=== PATIENT | male | born 1970 | race Caucasian/White ===

== ENCOUNTER 2020-10-21 08:46 | Outpatient (REF) | payer MEDICAID, SELFPAY | END 2020-10-21 08:47 | disposition home or self-care (01) | LOC: HO.LAB 08:46 | PROVIDERS: Visit Provider Internal Medicine | DX: Z20.828 Contact with and (suspected) exposure to other viral communicable diseases (principal) | CPT/HCPCS: C9803; U0003 ==

== ENCOUNTER 2020-12-27 13:36 | Outpatient (REF) | payer MEDICAID, SELFPAY | END 2020-12-27 13:37 | disposition home or self-care (01) | LOC: HO.LAB 13:36 | PROVIDERS: Visit Provider Internal Medicine | DX: Z20.822 Contact with and (suspected) exposure to COVID-19 (principal) | CPT/HCPCS: 36415; C9803; U0003; U0005 ==

== ENCOUNTER 2021-05-28 10:02 | Outpatient (REF) | payer MEDICAID, SELFPAY ==
--- NOTE | ~2021-05-28 | XR_ITS ---
EXAMINATION: XR HAND, LEFT CLINICAL INFORMATION: Pain COMPARISON: None TECHNIQUE: PA, lateral, and oblique views of the left hand. FINDINGS: The bones and soft tissues are normal. No fracture. Alignment is anatomic. Joint spaces are maintained. No erosions or soft tissue calcifications. XR/XR hand LT min 3V IMPRESSION: Normal left hand.
== END 2021-05-28 10:03 | disposition home or self-care (01) ==
LOC: HO.XRAY 10:02
PROVIDERS: PCP Internal Medicine Geriatric Medicine; Visit Provider Internal Medicine Geriatric Medicine
DX: M79.642 Pain in left hand (principal)
CPT/HCPCS: 73130

== ENCOUNTER 2022-01-21 14:10 | Outpatient (REF) | payer MEDICAID, SELFPAY ==
--- NOTE | ~2022-01-21 | MR_ITS ---
EXAMINATION: MR LUMBAR SPINE WITHOUT CONTRAST CLINICAL INFORMATION: Status post remote trauma. Some loss of sensation right leg. COMPARISON: None TECHNIQUE: MRI of the lumbar spine was obtained using routine sequences without contrast. FINDINGS: The lumbar vertebral bodies maintain normal heights. There is mild retrolisthesis of L2 on L3 with mild disc height loss. No bone marrow edema is seen. The distal spinal cord appears normal. The conus medullaris terminates normally at the L1 level. The extraspinal soft tissues are within normal limits. SPINAL LEVELS: L1-L2: Disc bulging with left subarticular protrusion with abutment of the traversing left L2 nerve root. No spinal canal or neural foraminal stenosis. L2-L3: Disc bulging with facet arthropathy resulting in mild spinal canal stenosis and mild narrowing of the neural foramina. L3-L4: Disc bulging with mild to moderate facet arthropathy with left subarticular stenosis. Bulging disc extends into the neural foramina resulting in mild mass effect on the exiting L3 nerve roots. L4-L5: Disc bulging with left foraminal annular fissuring and mild facet arthropathy. No spinal canal stenosis. Left foraminal protrusion abuts the exiting left L4 nerve root. Mild right neural foraminal stenosis. L5-S1: Disc bulging with shallow central protrusion and moderate facet arthropathy. Severe right and moderate left neural foraminal stenosis. MR/MR lumbar spine wo con IMPRESSION: Multilevel degenerative spondylosis without significant narrowing of the spinal canal. Mild retrolisthesis of L2 on L3. At L3-L4 there is mild mass effect on the exiting L3 nerve roots and left subarticular stenosis. At L4-L5 there is left foraminal protrusion causing abutment of the exiting left L4 nerve root. At L5-S1 there is severe right and moderate left neural foraminal stenosis.
== END 2022-01-21 14:11 | disposition home or self-care (01) ==
LOC: HO.MRI 14:10
PROVIDERS: Visit Provider Nurse Practitioner Family
DX: M54.42 Lumbago with sciatica, left side (principal)
CPT/HCPCS: 72148

== ENCOUNTER → 2022-01-30 15:14 | Outpatient (BNVA) | payer MEDICAID, SELFPAY | PROVIDERS: PCP Internal Medicine Geriatric Medicine; Visit Provider Urology | DX: N46.9 Male infertility, unspecified (principal); Q54.9 Hypospadias, unspecified | CPT/HCPCS: 99202 ==

== ENCOUNTER 2022-02-20 07:33 | Outpatient (REF) | payer MEDICAID, SELFPAY ==
[2022-02-20 08:42] LABS: Albumin Level 4.3 g/dL (3.5-5.0)
[2022-02-22 02:15] LABS: Follicle Stimulating Hormone 50.5 mIU/mL (1.6-8.0); Lutenizing Hormone 17.3 mIU/mL (1.5-9.3); Sex Hormone Binding Globulin 72 nmol/L (10-50)
[2022-02-28 20:21] LABS: Testosterone, Free 60.7 pg/mL (35.0-155.0); Testosterone, Total 578 ng/dL (250-1100)
== END 2022-02-20 07:34 | disposition home or self-care (01) ==
LOC: HO.LAB 07:33
PROVIDERS: PCP Internal Medicine Geriatric Medicine; Visit Provider Urology
DX: E29.1 Testicular hypofunction (principal); N46.9 Male infertility, unspecified
CPT/HCPCS: 36415; 82040; 83001; 83002; 84270; 84402; 84403

== ENCOUNTER → 2022-03-05 08:46 | Outpatient (BNVA) | payer MEDICAID, SELFPAY | PROVIDERS: PCP Internal Medicine Geriatric Medicine; Visit Provider Urology | DX: N46.9 Male infertility, unspecified (principal); Q54.9 Hypospadias, unspecified | CPT/HCPCS: 99212 ==

== ENCOUNTER 2022-11-15 12:23 | Emergency (ER) | payer MEDICAID, SELFPAY ==
--- NOTE | ~2022-11-15 | XR_ITS ---
EXAMINATION: XR CHEST CLINICAL INFORMATION: Chest pain COMPARISON: None TECHNIQUE: 2 views of the chest were obtained. FINDINGS: No significant abnormality is noted involving the heart, lungs, mediastinum, bony thorax or soft tissues. XR/XR chest 2V IMPRESSION: Unremarkable chest examination.
[2022-11-15 12:34] VITALS: BP 131/91; PULSE 78; RESP 17; TEMP 36.9; O2SAT 99; BMI 24.3
--- NOTE | 2022-11-15 12:34 | ED_ITS ---
HPI - URI/Sore Throat General Chief Complaint: Upper Respiratory Symptoms Stated Complaint: COVID + Related Data Home Medications Medication Instructions Recorded Confirmed amlodipine 10 mg tablet 10 mg PO DAILY 01/30/22 aripiprazole 15 mg tablet 15 mg PO DAILY 01/30/22 baclofen 20 mg tablet 20 mg PO BID 01/30/22 bupropion HCl 300 mg 24 hr tablet, 300 mg PO QAM 01/30/22 extended release lisinopril 20 1 tab PO DAILY 01/30/22 mg-hydrochlorothiazide 25 mg tablet melatonin 5 mg tablet 5 mg PO BEDTIME 01/30/22 prazosin 1 mg capsule 1 mg PO BEDTIME nightmares 01/30/22 sertraline 100 mg tablet 150 mg PO QAM 01/30/22 trazodone 100 mg tablet 200 mg PO BEDTIME 01/30/22 amlodipine 5 mg tablet 5 mg PO DAILY 03/05/22 ibuprofen 400 mg tablet 400 - 800 mg PO Q6-8H PRN pain 03/05/22 nabumetone 750 mg tablet 750 mg PO BID 03/05/22 Allergies Allergy/AdvReac Type Severity Reaction Status Date / Time No Known Allergies Allergy Verified 08/12/22 10:44 [facility] Past Medical History Medical History Anxiety Chronic pain of both knees Headache HTN (hypertension) Low back pain Major depressive disorder Sleep disorder Social History Social History Advance Directives: No Advance Directives Information Provided: Yes Physical Exam Vital Signs: Vital Signs: Last Vital Signs Temp 98.5 F 11/15/22 12:34 Pulse 78 11/15/22 12:34 Resp 17 11/15/22 12:34 BP 131/91 H 11/15/22 12:34 Pulse Ox 99 11/15/22 12:34 O2 Del Method 11/15/22 12:34 BMI result Body Mass Index 24.3 Course Course Course Narrative: This is an RME: Additional HPI, ROS, PE not included below will be deferred to primary provider. Patient is a 52-year-old male who presents to the emergency department with complaints of fever, diarrhea, body aches, sore throat. Additionally he is reporting chest pain described as pressure which is most concerning for him. It was worse at symptom onset. Currently is described as minimal, made worse with cough and deep inspiration. Yesterday was COVID-19 test positive at home. Symptom onset was 4 days ago. Has been vaccinated for COVID-19 x3. PE: LSCTA, no respiratory distress. Vitals stable. Plan: EKG, labs, CXR, COVID-19 PCR Medical Decision Making Lab Data Result Diagrams: 11/15/22 13:27 11/15/22 13:27 Labs: Lab Results 11/15/22 11/15/22 11/15/22 Range/Units 13:27 13:27 13:27 WBC 4.8 (4.8-10.8) X10*3/uL RBC 4.74 (4.60-5.80) X10*6/uL Hgb 14.1 (14.0-18.0) g/dl Hct 44.0 (42.0-52.0) % MCV 92.8 (80.0-98.0) fL MCH 29.7 (27.0-33.0) pg MCHC 32.0 (31.0-36.0) g/dl RDW 11.4 (11.0-16.0) % Plt Count 153 L (160-400) X10*3/uL MPV 8.5 L (9.4-12.4) fL Immature Gran % (Auto) 0.2 (0.0-0.4) % Neut % (Auto) 47.1 (45-73) % Lymph % (Auto) 32.2 (20-40) % [place] % (Auto) 19.0 H (2-11) % Eos % (Auto) 1.3 (0-4) % Baso % (Auto) 0.2 (0-2) % Lymph # (Auto) 1.5 (1.2-4.9) X10*3/uL [place] # (Auto) 0.9 (0.1-1.2) X10*3/uL Eos # (Auto) 0.1 (0.0-0.4) X10*3/uL Baso # (Auto) 0.0 (0.0-0.2) X10*3/uL Abs Immat Gran (auto) 0.01 (0.00-0.03) X10*3/uL Absolute Neuts (auto) 2.3 (2.0-8.3) x10*3/uL Absolute Nucleated RBC 0.000 (0.0-0.012) X10*3/uL Nucleated RBC % (auto) 0.0 (0.0-0.2) /100WBC Sodium 139 (135-145) mmol/L Potassium 4.1 (3.3-5.1) mmol/L Chloride 108 (96-108) mmol/L Carbon Dioxide 24 (22-29) mmol/L Anion Gap 11 L (12-20) BUN 19 H (9-16) mg/dL Creatinine 1.16 (0.5-1.4) mg/dL Estim Creat Clear Calc 70.4 Estimated GFR > 60 Random Glucose 86 (60-115) mg/dL Calcium 8.5 (8.4-10.2) mg/dL Total Bilirubin 0.7 (0.0-1.0) mg/dL AST 29 (5-37) U/L ALT 19 (0-40) U/L Alkaline Phosphatase 58 (39-117) U/L Troponin I High Sens < 3.5 (<3.5-35.0) ng/L Total Protein 7.0 (6.5-8.0) g/dL Albumin 4.1 (3.5-5.0) g/dL COVID-19 (JAYA) (Negative) COVID-19 Clin Com 11/15/22 Range/Units 13:28 WBC (4.8-10.8) X10*3/uL RBC (4.60-5.80) X10*6/uL Hgb (14.0-18.0) g/dl Hct (42.0-52.0) % MCV (80.0-98.0) fL MCH (27.0-33.0) pg MCHC (31.0-36.0) g/dl RDW (11.0-16.0) % Plt Count (160-400) X10*3/uL MPV (9.4-12.4) fL Immature Gran % (Auto) (0.0-0.4) % Neut % (Auto) (45-73) % Lymph % (Auto) (20-40) % [place] % (Auto) (2-11) % Eos % (Auto) (0-4) % Baso % (Auto) (0-2) % Lymph # (Auto) (1.2-4.9) X10*3/uL [place] # (Auto) (0.1-1.2) X10*3/uL Eos # (Auto) (0.0-0.4) X10*3/uL Baso # (Auto) (0.0-0.2) X10*3/uL Abs Immat Gran (auto) (0.00-0.03) X10*3/uL Absolute Neuts (auto) (2.0-8.3) x10*3/uL Absolute Nucleated RBC (0.0-0.012) X10*3/uL Nucleated RBC % (auto) (0.0-0.2) /100WBC Sodium (135-145) mmol/L Potassium (3.3-5.1) mmol/L Chloride (96-108) mmol/L Carbon Dioxide (22-29) mmol/L Anion Gap (12-20) BUN (9-16) mg/dL Creatinine (0.5-1.4) mg/dL Estim Creat Clear Calc Estimated GFR Random Glucose (60-115) mg/dL Calcium (8.4-10.2) mg/dL Total Bilirubin (0.0-1.0) mg/dL AST (5-37) U/L ALT (0-40) U/L Alkaline Phosphatase (39-117) U/L Troponin I High Sens (<3.5-35.0) ng/L Total Protein (6.5-8.0) g/dL Albumin (3.5-5.0) g/dL COVID-19 (JAYA) Positive A (Negative) COVID-19 Clin Com See Note Discharge Plan Discharge Clinical Impression: Upper respiratory infection Patient Disposition: Elopement Prescriptions: No Action melatonin 5 mg tablet 5 mg PO BEDTIME bupropion HCl 300 mg tablet extended release 24 hr 300 mg PO QAM aripiprazole 15 mg tablet 15 mg PO DAILY lisinopril-hydrochlorothiazide 20-25 mg tablet 1 tab PO DAILY amlodipine 10 mg tablet 10 mg PO DAILY trazodone 100 mg tablet 200 mg PO BEDTIME sertraline 100 mg tablet 150 mg PO QAM prazosin 1 mg capsule 1 mg PO BEDTIME baclofen 20 mg tablet 20 mg PO BID ibuprofen 400 mg tablet 400 - 800 mg PO Q6-8H PRN (Reason: pain) nabumetone 750 mg tablet 750 mg PO BID amlodipine 5 mg tablet 5 mg PO DAILY Discharge Date/Time: 11/15/22 16:01
--- NOTE | 2022-11-15 12:43 | ECG_ITS ---
Test Reason : chest pain Blood Pressure : / mmHG Vent. Rate : 076 BPM Atrial Rate : 076 BPM P-R Int : 152 ms QRS Dur : 144 ms QT Int : 412 ms P-R-T Axes : 082 005 112 degrees QTc Int : 463 ms Normal sinus rhythm Left bundle branch block Abnormal ECG No previous ECGs available Referred By: Alice Orellana Electronically Signed By:ESCOBAR SALAZAR
[2022-11-15 13:33] LABS: MANUAL DIFF FLAG NO
[2022-11-15 13:36] LABS: Basophils Percent Auto 0.2 % (0-2); Eosinophils Absolute Auto 0.1 X10*3/uL (0.0-0.4); Eosinophils Percent Auto 1.3 % (0-4); Hemoglobin 14.1 g/dl (14.0-18.0); Imm Gran Abs Auto 0.01 X10*3/uL (0.00-0.03); Imm Gran Pct Auto 0.2 % (0.0-0.4); Lymphocytes Absolute Auto 1.5 X10*3/uL (1.2-4.9); Lymphocytes Percent Auto 32.2 % (20-40); Mean Corpuscular Hemoglobin 29.7 pg (27.0-33.0); Mean Corpuscular Volume 92.8 fL (80.0-98.0); Mean Platelet Volume 8.5 fL (9.4-12.4); Monocytes Absolute Auto 0.9 X10*3/uL (0.1-1.2); Neutrophils Absolute Auto 2.3 x10*3/uL (2.0-8.3); Neutrophils Percent Auto 47.1 % (45-73); Platelet Count 153 X10*3/uL (160-400); Red Blood Count 4.74 X10*6/uL (4.60-5.80); Red Cell Distribution Width 11.4 % (11.0-16.0); White Blood Count 4.8 X10*3/uL (4.8-10.8)
[2022-11-15 13:43] LABS: COVID-19 Test Positive (Negative); IDNOW Serial# 16C4AD1C
[2022-11-15 14:06] LABS: Alanine Aminotransferase 19 U/L (0-40); Albumin Level 4.1 g/dL (3.5-5.0); Alkaline Phosphatase 58 U/L (39-117); Anion Gap 11 (12-20); Aspartate Amino Transferase 29 U/L (5-37); Bilirubin Total 0.7 mg/dL (0.0-1.0); Blood Urea Nitrogen 19 mg/dL (9-16); Calcium 8.5 mg/dL (8.4-10.2); Carbon Dioxide 24 mmol/L (22-29); Chloride 108 mmol/L (96-108); Creatinine Clr Calc Pharmacy 70.4; Estimated Glomerular Filt Rate > 60; Glucose Random 86 mg/dL (60-115); Potassium 4.1 mmol/L (3.3-5.1); Sodium 139 mmol/L (135-145)
[2022-11-15 14:19] LABS: Troponin-I High Sensitivity < 3.5 ng/L (<3.5-35.0)
== END 2022-11-15 16:01 | disposition left against medical advice (07) ==
PROVIDERS: Nurse Practitioner Family; Emergency Provider Emergency Medicine; PCP Internal Medicine Geriatric Medicine
DX: U07.1 COVID-19 (principal); R07.89 Other chest pain; Z79.899 Other long term (current) drug therapy
CPT/HCPCS: 36415; 71046; 80053; 84484; 85025; 87635; 93005; 99283

== ENCOUNTER 2022-12-06 10:04 | Outpatient (REF) | payer MEDICAID, SELFPAY ==
--- NOTE | ~2022-12-06 | XR_ITS ---
EXAMINATION: XR knee standing BI, XR knee LT 2V CLINICAL INFORMATION: Pain COMPARISON: Knee radiographs 07/01/2018 TECHNIQUE: 2 views of the left knee and one view of the bilateral knees standing. FINDINGS: No acute fracture or dislocation. Mild degenerative changes of the knees with spurring of the tibial spines. Joint spaces are maintained. Trace left suprapatellar joint effusion. Soft tissues are unremarkable. XR/XR knee standing BI IMPRESSION: * Mild degenerative changes of the knees with spurring of the tibial spines. * Trace left suprapatellar joint effusion.
--- NOTE | ~2022-12-06 | XR_ITS ---
EXAMINATION: XR knee standing BI, XR knee LT 2V CLINICAL INFORMATION: Pain COMPARISON: Knee radiographs 07/01/2018 TECHNIQUE: 2 views of the left knee and one view of the bilateral knees standing. FINDINGS: No acute fracture or dislocation. Mild degenerative changes of the knees with spurring of the tibial spines. Joint spaces are maintained. Trace left suprapatellar joint effusion. Soft tissues are unremarkable. XR/XR knee LT 2V IMPRESSION: * Mild degenerative changes of the knees with spurring of the tibial spines. * Trace left suprapatellar joint effusion.
== END 2022-12-06 10:05 | disposition home or self-care (01) ==
LOC: HO.HOSX 10:04
PROVIDERS: PCP Internal Medicine Geriatric Medicine; Visit Provider Physician Assistant
DX: M17.32 Unilateral post-traumatic osteoarthritis, left knee (principal)
CPT/HCPCS: 20610; 73560; 73565; 99202; J1040

== ENCOUNTER 2023-03-31 17:24 | Emergency (ER) | payer MEDICAID, SELFPAY ==
--- NOTE | 2023-03-31 17:31 | ED_ITS ---
HPI - Extremity Injury (Upper) General Chief Complaint: Wound/Laceration <Julia Booth NP - Last Filed: 03/31/23 17:35> Stated Complaint: left hand finger injury <Julia Booth NP - Last Filed: 03/31/23 17:35> Time Seen by Provider: 03/31/23 18:57 <Julia Booth NP - Last Filed: 03/31/23 17:35> Source: patient <JEANMARIE Coyle - Last Filed: 03/31/23 19:33> Mode of arrival: ambulatory <JEANMARIE Coyle Last Filed: 03/31/23 19:33> Limitations: no limitations <JEANMARIE Coyle Last Filed: 03/31/23 19:33> History of Present Illness HPI narrative: 52-year-old male history of hypospadias, depession, HTN, , male infertility posttraumatic osteoarthritis of left knee presenting with laceration to left index finger, patient reports he was working on a car and cut himself on metal. Patient tells me he is not sure if he is up-to-date on a tetanus shot. He tells me he is able to move finger without difficulty. Patient denies fevers, chills, numbness, tingling. <JEANMARIE Coyle Last Filed: 03/31 19:33> Related Data Home Medications: Home Medications Medication Instructions Recorded Confirmed amlodipine 10 mg tablet 10 mg PO DAILY 01/30/22 aripiprazole 15 mg tablet 15 mg PO DAILY 01/30/22 baclofen 20 mg tablet 20 mg PO BID 01/30/22 bupropion HCl 300 mg 24 hr tablet, 300 mg PO QAM 01/30/22 extended release lisinopril 20 1 tab PO DAILY 01/30/22 mg-hydrochlorothiazide 25 mg tablet melatonin 5 mg tablet 5 mg PO BEDTIME 01/30/22 prazosin 1 mg capsule 1 mg PO BEDTIME nightmares 01/30/22 sertraline 100 mg tablet 150 mg PO QAM 01/30/22 trazodone 100 mg tablet 200 mg PO BEDTIME 01/30/22 amlodipine 5 mg tablet 5 mg PO DAILY 03/05/22 ibuprofen 400 mg tablet 400 - 800 mg PO Q6-8H PRN pain 03/05/22 nabumetone 750 mg tablet 750 mg PO BID 03/05/22 Previous Rx's Medication Instructions Recorded cephalexin 500 mg tablet 500 mg PO Q6H 7 days #28 tabs 03/31/23 <Julia Booth NP - Last Filed: 03/31/23 17:35> Allergies/Adverse Reactions: Allergies Allergy/AdvReac Type Severity Reaction Status Date / Time No Known Allergies Allergy Verified 12/06/22 10:18 <Julia Booth NP - Last Filed: 03/31/23 17:35> Review of Systems Review of Systems: Constitutional : No Fever, No Chills, Cardiovascular : No Chest Pain, No SOB Respiratory : No Dyspnea Gastrointestinal : No abdominal pain Musculoskeletal : No Joint Swelling Skin : No rash, positive skin laceration Neuro : No Weakness, No Numbness Psych : No SI/HI <JEANMARIE Coyle - Last Filed: 03/31/23 19:33> Yes all other systems are reviewed and are negative <JEANMARIE Coyle - Last Filed: 03/31/23 19:33> [facility] Past Medical History Attestation statement: The following information was validated with the patient. <JEANMARIE Coyle - Last Filed: 03/31/23 19:33> Source: old records reviewed and nursing notes reviewed <JEANMARIE Coyle - Last Filed: 03/31/23 19:33> Medical History: Medical History Anxiety Chronic pain of both knees Headache HTN (hypertension) Low back pain Major depressive disorder Sleep disorder <Julia Booth NP - Last Filed: 03/31/23 17:35> Social History Social History: Social History Alcohol intake: never Patient Tobacco Use Status: Never used Tobacco Advance Directives: No Advance Directives Information Provided: No Current occupational status: disabled <Julia Booth NP - Last Filed: 03/31/23 17:35> Physical Exam Vital Signs: Vital Signs: Last Vital Signs Temp 98.2 F 03/31/23 17:32 Pulse 87 03/31/23 17:32 Resp 16 03/31/23 17:32 BP 138/107 H 03/31/23 17:32 Pulse Ox 97 03/31/23 17:32 O2 Del Method Room Air 03/31/23 17:32 BMI result Body Mass Index 23.8 <Julia Booth NP - Last Filed: 03/31/23 17:35> Vital Signs: Last Vital Signs Temp 98.2 F 03/31/23 17:32 Pulse 87 03/31/23 17:32 Resp 16 03/31/23 17:32 BP 138/107 H 03/31/23 17:32 Pulse Ox 97 03/31/23 17:32 O2 Del Method Room Air 03/31/23 17:32 BMI result Body Mass Index 23.8 Patient's blood pressure is slightly elevated likely secondary to pain <JEANMARIE Coyle - Last Filed: 03/31/23 19:33> Appearance: Alert.? Oriented X3.? No acute distress.? Head: Normocephalic, atraumatic, no step-offs or deformities Eyes: Pupils equal, round and reactive to light.?l.? Respiratory: No respiratory distress.? Breath sounds normal.? Abdomen: Soft and nontender.? Skin: Skin warm and dry.? Normal skin color.? Normal skin turgor.? Extremities: 5/5 strength to bilateral upper and lower extremities + superficial laceration to the left index finger along the distal volar aspect, no visualized foreign bodies. 2+ radial pulses equal bilateral, capillary refill less than 2 seconds to all upper extremity digits. Normal sensation distally to all fingers bilaterally. Neuro: Oriented X 3.? No motor deficit.? No sensory deficit. CN 2-12 intact <JEANMARIE Coyle - Last Filed: 03/31/23 19:33> Course Course Course Narrative: This is a rapid medical exam. Deferred additional HPI, ROS, PE to primary provider. 52 yo male with history of HTN, depression, right handed here with complaints of left index finger laceration from working on a car. Unknown last tetanus vaccine. There is a superficial laceration to the left index finger along the distal volar aspect however the surrounding tissue is quite contaminated and visibly dirt. Will need to be cleaned and determined if he needs sutures, tetanus will updated. VSS <Julia Booth NP - Last Filed: 03/31/23 17:35> Reevaluation(s) Reevaluation #1: Area cleaned and closed with Dermabond. Patient will be discharged home. No indication for antibiotics. Advised to return with new or worsening symptoms. <JEANMARIE Coyle - Last Filed: 03/31/23 19:33> Time: 19:05 <JEANMARIE Coyle - Last Filed: 03/31/23 19:33> Medications Administered Discontinued Medications Generic Name Dose Route Start Last Admin Trade Name Freq PRN Reason Stop Dose Admin Diphtheria/Tetanus/Acell Pertussis 0.5 ml 03/31/23 17:33 03/31/23 18:16 Diphth,Pertus(Acell),Tet Adult 0.5 Ml Syringe IM 03/31/23 17:34 0.5 ml .ONCE ONE Administration <Julia Booth NP - Last Filed: 03/31/23 17:35> Medications Administered Discontinued Medications Generic Name Dose Route Start Last Admin Trade Name Freq PRN Reason Stop Dose Admin Diphtheria/Tetanus/Acell Pertussis 0.5 ml 03/31/23 17:33 03/31/23 18:16 Diphth,Pertus(Acell),Tet Adult 0.5 Ml Syringe IM 03/31/23 17:34 0.5 ml .ONCE ONE Administration <JEANAMRIE Coyle - Last Filed: 03/31/23 19:33> Medical Decision Making Medical Decision Making [facility] Narrative: 1906 52-year-old male presents with laceration to left index finger cut himself while working on a car. Unclear if tetanus status. Denies numbness and tingling. Physical exam significant for 5/5 strength to bilateral upper and lower extremities + superficial laceration to the left index finger along the distal volar aspect, no visualized foreign bodies. 2+ radial pulses equal bilateral, capillary refill less than 2 seconds to all upper extremity digits. Normal sensation distally to all fingers bilaterally. Likely simple laceration, unlikely fracture, dislocation, ligament or tendon injury. No signs of neurovascular compromise, threatened limb. Plan laceration will be cleaned, Dermabond will be applied and patient will be given is tetanus shot <JEANMARIE Coyle - Last Filed: 03/31/23 19:33> Differential Diagnosis Differential Diagnoses: The differential diagnosis associated with the presentation includes <JEANMARIE Coyle - Last Filed: 03/31/23 19:33> Likely simple laceration, unlikely fracture, dislocation, ligament or tendon injury. No signs of neurovascular compromise, threatened limb. <JEANMARIE Coyle - Last Filed: 03/31/23 19:33> Admission/Observation Consideration of admission/observation: Escalation of care including admission/observation considered <JEANMARIE Coyle - Last Filed: 03/31/23 19:33> not idicated <JEANMARIE Coyle - Last Filed: 03/31/23 19:33> Core Measures AMI core measures followed: Yes <JEANMARIE Coyle - Last Filed: 03/31/23 19:33> Measure exclusions: not indicated <JEANMARIE Coyle - Last Filed: 03/31/23 19:33> Critical Care Time Critical Care Time Critical Care Time: No <JEANMARIE Coyle - Last Filed: 03/31/23 19:33> Discharge Plan Discharge Clinical Impression: Laceration <Julia Booth NP - Last Filed: 03/31/23 17:35> Patient Disposition: Home, Self-Care <Julia Booth NP - Last Filed: 03/31/23 17:35> Additional Instructions: Take your medications as prescribed. If you were prescribed antibiotics today, it is important that you take your medication to their entirety, do not skip any doses, do not finish them early. Follow-up with your primary care provider this week. Return to the emergency department with new or worsening symptoms. Such as fevers, chills, chest pain, shortness of breath, nausea, vomiting, dizziness, headache, vision changes, lethargy In case of emergency call 911 Please allow for glue to fall off. You were given your tetanus booster today <Julia Booth NP - Last Filed: 03/31/23 17:35> Prescriptions: New cephalexin 500 mg tablet 500 mg PO Q6H 7 Days Qty: 28 0RF No Action melatonin 5 mg tablet 5 mg PO BEDTIME bupropion HCl 300 mg tablet extended release 24 hr 300 mg PO QAM aripiprazole 15 mg tablet 15 mg PO DAILY lisinopril-hydrochlorothiazide 20-25 mg tablet 1 tab PO DAILY amlodipine 10 mg tablet 10 mg PO DAILY trazodone 100 mg tablet 200 mg PO BEDTIME sertraline 100 mg tablet 150 mg PO QAM prazosin 1 mg capsule 1 mg PO BEDTIME baclofen 20 mg tablet 20 mg PO BID ibuprofen 400 mg tablet 400 - 800 mg PO Q6-8H PRN (Reason: pain) nabumetone 750 mg tablet 750 mg PO BID amlodipine 5 mg tablet 5 mg PO DAILY <Julia Booth NP - Last Filed: 03/31/23 17:35> Referrals: Name,MD Jeremiah [Primary Care Provider] - 2 days <Julia Booth NP - Last Filed: 03/31/23 17:35> Interventions: ED Discharge Assessment Last Done: 03/31/23 19:32 <Julia Booth NP - Last Filed: 03/31/23 17:35>
[2023-03-31 17:32] VITALS: BP 138/107; PULSE 87; RESP 16; TEMP 36.8; O2SAT 97; BMI 23.8
[2023-03-31] MEDS: Diphth,Pertus(ACell),Tet Adult 0.5 ML SYRINGE IM (18:16)
== END 2023-03-31 19:32 | disposition home or self-care (01) ==
PROVIDERS: Emergency Provider Emergency Medicine; PCP Internal Medicine Geriatric Medicine
DX: S61.211A Laceration without foreign body of left index finger without damage to nail, initial encounter (principal); S60.512A Abrasion of left hand, initial encounter; I10 Essential (primary) hypertension; Y28.9XXA Contact with unspecified sharp object, undetermined intent, initial encounter; Y93.9 Activity, unspecified; Y92.9 Unspecified place or not applicable; Y99.9 Unspecified external cause status; Z79.899 Other long term (current) drug therapy; Z23 Encounter for immunization
CPT/HCPCS: 90471; 90715; 99282; 99284

== ENCOUNTER 2023-12-31 15:48 | Outpatient (REF) | payer MEDICAID, SELFPAY ==
--- NOTE | ~2023-12-31 | XR_ITS ---
EXAMINATION: XR HAND, RIGHT XR HAND, LEFT CLINICAL INFORMATION: Pain in both hands COMPARISON: None TECHNIQUE: PA, lateral, and oblique views of each hand. FINDINGS: RIGHT HAND: Ulnar positive variance (2 mm). No fracture or malalignment. Bone mineralization is normal. Joint spaces well-preserved. Small ossific focus in the palmar/radial soft tissues at the ring finger MCP joint is of doubtful clinical significance.. No erosions or significant periostitis. LEFT HAND: Minimal ulnar positive variance (1 mm). No fracture or malalignment. Bone mineralization is normal. Joint spaces well-preserved. No erosions. No soft tissue calcifications or significant periostitis. XR/XR hand LT min 3V IMPRESSION: 1. No acute osseous abnormalities in the hands. No evidence of an inflammatory arthropathy. 2. Bilateral ulnar positive variance, right greater than left.
--- NOTE | ~2023-12-31 | XR_ITS ---
EXAMINATION: XR HAND, RIGHT XR HAND, LEFT CLINICAL INFORMATION: Pain in both hands COMPARISON: None TECHNIQUE: PA, lateral, and oblique views of each hand. FINDINGS: RIGHT HAND: Ulnar positive variance (2 mm). No fracture or malalignment. Bone mineralization is normal. Joint spaces well-preserved. Small ossific focus in the palmar/radial soft tissues at the ring finger MCP joint is of doubtful clinical significance.. No erosions or significant periostitis. LEFT HAND: Minimal ulnar positive variance (1 mm). No fracture or malalignment. Bone mineralization is normal. Joint spaces well-preserved. No erosions. No soft tissue calcifications or significant periostitis. XR/XR hand RT min 3V IMPRESSION: 1. No acute osseous abnormalities in the hands. No evidence of an inflammatory arthropathy. 2. Bilateral ulnar positive variance, right greater than left.
[2023-12-31 17:57] LABS: Anion Gap 14 (12-20); Blood Urea Nitrogen 14 mg/dL (9-16); Calcium 9.6 mg/dL (8.4-10.2); Carbon Dioxide 25 mmol/L (22-29); Chloride 106 mmol/L (96-108); Estimated Glomerular Filt Rate > 60; Glucose Random 95 mg/dL (60-115); Potassium 4.3 mmol/L (3.3-5.1); Sodium 141 mmol/L (135-145)
== END 2023-12-31 15:49 | disposition home or self-care (01) ==
LOC: HO.HHCL 15:48
PROVIDERS: Visit Provider Internal Medicine Geriatric Medicine
DX: M76.41 Tibial collateral bursitis [Pellegrini-Stieda], right leg (principal); M79.642 Pain in left hand; I10 Essential (primary) hypertension
CPT/HCPCS: 36415; 73130; 80048

== ENCOUNTER 2024-09-13 09:17 | Outpatient (REF) | payer MEDICAID, SELFPAY ==
[2024-09-13 12:02] LABS: Alanine Aminotransferase 19 U/L (0-40); Albumin Level 4.1 g/dL (3.5-5.0); Alkaline Phosphatase 65 U/L (39-117); Anion Gap 8 (12-20); Aspartate Amino Transferase 32 U/L (5-37); Bilirubin Total 0.7 mg/dL (0.0-1.0); Blood Urea Nitrogen 15 mg/dL (9-16); Calcium 8.5 mg/dL (8.4-10.2); Carbon Dioxide 27 mmol/L (22-29); Chloride 109 mmol/L (96-108); Cholesterol 149 mg/dL (<200); Estimated Glomerular Filt Rate > 60; Glucose Random 97 mg/dL (60-115); HDL Cholesterol 36 mg/dL (>40); LDL Cholesterol Calculated 89 mg/dL (<100); Potassium 3.8 mmol/L (3.3-5.1); Sodium 140 mmol/L (135-145); Total Protein 7.3 g/dL (6.5-8.0); Triglycerides 122 mg/dL (<150)
== END 2024-09-13 09:18 | disposition home or self-care (01) ==
LOC: HO.HHCL 09:17
PROVIDERS: Visit Provider Internal Medicine Geriatric Medicine
DX: I10 Essential (primary) hypertension (principal); F41.9 Anxiety disorder, unspecified; Z55.0 Illiteracy and low-level literacy
CPT/HCPCS: 36415; 80053; 80061

== ENCOUNTER 2025-03-23 12:51 | Outpatient (REF) | payer MEDICAID, SELFPAY ==
--- OUTSIDE RECORDS SUMMARY | 2025-03-23 13:55 | XMS_ITS | Encounter Summary ---
Author Organization [employer] Address [address] [facility] 7[address] [place] [address] Care Team Providers Care Leasing Associate Name Role Phone Name, Jeremiah GARCIA Primary Care Provider [phone] Reason for Visit * Reason Onset Date Comments Appointment Request 03/22/2025 Encounter Details Date Type Department Care Team ([facility] st Contact Info) Description 03/22/2025 Telephone [facility] MEDICINE [address] [place] [address] Name, MD Jeremiah [address] [place] [address] Appointment Request Social History Tobacco Use Types Packs/Day Years Used Date Smoking Tobacco: Never Passive Smoke Exposure: Never Smokeless Tobacco: Never Alcohol Use Standard Drinks/Week Comments Never 0 (1 standard drink = 0.6 oz pur e alcohol) Depression Answer Date Recorded Patient Health Questionnaire-9 Score 9 06/13/2023 Housing Stability Answer Date Recorded What is your housing situation today? I have gracy san 09/10/[address] you li ve. Do you have problems with any of the following? None of the above 09/10/2023 Food Insecurity Answer Date Recorded Within the past 12 months, y ou worried that your food would run out before you got money to buy more: Never True 09/10/2023 Within the past 12 months,th e food you bought just didn't last and you didn't have enough money to get more: Never True Transportation Answer Date Recorded In the past 12 months, has l ack of transportation kept you from medical appts, meetings, work or from getting things needed for daily living? No 09/10/2023 Utilities Answer Date Recorded In the past 12 months, has t he electric, gas, oil or water company threatened to shut off services in your home? No 09/10/2023 Depression Answer Date Recorded Patient Health Questionnaire-2 Score 3 06/13/2023 Sex and Gender Information Value Date Recorded Sex Assigned at Male 09/16/2022 10:34 AM EDT Legal Sex Male 10:34 AM EDT Gender Identity Male 09/16/2022 10:34 AM EDT Sexual Orientation Straight 09/16/2022 10 :34 AM EDT documented as of this encounter Miscellaneous Notes * Telephone Encounter - Lucero Avila - 03/22/2025 2:09 PM EDT Tc from pt requesting schedule follow up appointment. Recall: November documented in this encounter Plan of Treatment Upcoming Encounters Date Type Department Care Team (Late st Contact Info) Description 04/08/2025 1:45 PM EDT Office Visit [facility] MEDICINE [address] [place] [phone] NameJeremiah MD [address] [place] [address] documented as of this encounter Goals Goal Patient Goal Type Associated Problems Recent Progress Patient-Stated? Author Record your blood pressure periodically (2-3x per week) Blood Pressure No Puia, Fatimah, PharmD Blood Pressure < 140/90 Blood Pressure 165/101(03/22 5:06 PM EDT) No Puia, Fatimah, PharmD documented as of this encounter Visit Diagnoses Not on filedocumented in this encounter Additional Health Concerns Assessment Noted Time PHQ-9 Depression Total Score: 9 06/13/20 23 11:19 AM EDT documented as of this encounter Care Teams Leasing Associate Relationship Specialty Start Date End Date NameJeremiah MD [address] [place] [phone] PCP - General Family Medicine 06/26/18 documented as of this encounter
--- OUTSIDE RECORDS SUMMARY | 2025-03-23 13:55 | XMS_ITS | Encounter Summary ---
Author Organization [employer] Address [address] [facility] 7t [place] [address] Care Team Providers Care Stripe Marker Name Role Phone Name, Jeremiah GARCIA Primary Care Provider [phone] Reason for Visit * Reason Onset Date Comments Med Refill 03/22/2025 Encounter Details Date Type Department Care Team ([facility] st Contact Info) Description 03/22/2025 Refill [facility] MEDICINE [address] [place] [address] Name, MD Jeremiah [address] [place], [place] [phone] Essential hypertension Social History Tobacco Use Types Packs/Day Years [...] encounter Miscellaneous Notes * Telephone Encounter - Shelli Ramos LPN - 03/22/2025 2:27 PM EDT Last seen 09.03.24 * Telephone Encounter - Lucero Avila - 03/22/2025 2:10 PM EDT TC from pt requesting medication refill. Medications needing refill : lisinopril 10 MG tablet To be sent to: [facility] - [place], [place] - [address] [place] [address] documented in this encounter Plan of Treatment Upcoming Encounters Date Type Department Care Team ([facility] st Contact Info) Description 04/08/2025 1:45 PM EDT Office Visit [facility] MEDICINE [address] [place] [phone] Name, MD Jeremiah [address] [place] [address] documented as of this encounter Goals Goal Patient Goal Type Associated Problems Recent Progress Patient-Stated? Author Record your blood pressure periodically (2-3x per week) Blood Pressure No PuiaFatimah, PharmD Blood Pressure < 140/90 Blood Pressure 165/101(03/22 5:06 PM EDT) No PuFatimah carvalho, PharmD documented as of this encounter Visit Diagnoses Diagnosis Essential hypertension Unspecified essential hypertension documented in this encounter Additional Health Concerns Assessment Noted Time PHQ-9 Depression Total Score: 9 06/13/20 23 11:19 AM EDT documented as of this encounter Care Teams Stripe Marker Relationship Specialty Start Date End Date Name, MD Jeremiah [address] [place] [address] PCP - General Family Medicine 06/26/18 documented as of this encounter
--- OUTSIDE RECORDS SUMMARY | 2025-03-23 13:56 | XMS_ITS | Encounter Summary ---
Author Organization [employer] Address [address] [facility] 7[address] [place] [address] Care Team Providers Care Register Clerk Name Role Phone Name, Jeremiah GARCIA Primary Care Provider [phone] Reason for Visit * Reason Onset Date Comments Appointment Request 03/22/2025 Encounter Details Date Type Department Care Team ([facility] st Contact Info) Description 03/22/2025 Telephone [facility] MEDICINE [address] [place], [place] [phone] Sherley Stallings [place] Appointment Request Social History Tobacco Use Types [...] encounter Miscellaneous Notes * Telephone Encounter - Sherley Stallings MA - 03/22/2025 3:18 PM EDT T/c placed to pt returning call back , spoke to sister with pt beside her, pt requesting schedule follow up appointment. Pt sister states she taking pt blood pressure at home and it been high and pt is not on meds also pt saying he having lots of headache and back pain, pt wants to speak to pcp with concerns and more, pt haven't seen pcp about an year ago , pt and sister agrees to come on 04/08/25@ 1:45pm documented in this encounter Plan of Treatment Upcoming Encounters Date Type Department Care Team (Late st Contact Info) Description 04/08/2025 1:45 PM EDT Office Visit [facility] MEDICINE [address] [place] [address] Jeremiah Morales MD [address] [place] [address] documented as of this encounter Goals Goal [...] documented as of this encounter Care Teams Register Clerk Relationship Specialty Start Date End Date NameJeremiah MD [address] [place] [address] PCP - General Family Medicine 06/26/18 documented as of this encounter
--- OUTSIDE RECORDS SUMMARY | 2025-03-23 13:56 | XMS_ITS | Encounter Summary ---
Author Organization [employer] Address [address] [facility] 7t [place] [address] Care Team Providers Care Custom Ski Maker Name Role Phone Name, Jeremiah GARCIA Primary Care Provider [phone] Encounter Details Date Type Department Care Team (Latest Contact Info) Description 03/22/2025 Travel Social History Tobacco Use Types Packs/Day Years [...] AM EDT documented as of this encounter Plan of Treatment Upcoming Encounters Date Type Department Care Team (Late st Contact Info) Description 04/08/2025 1:45 PM EDT Office Visit [facility] MEDICINE [address] [place] [address] Name, MD Jeremiah [address] [place] [address] documented as of this encounter Goals Goal [...] documented as of this encounter Care Teams Custom Ski Maker Relationship Specialty Start Date End Date Name, MD Jeremiah [address] [place] [id number] PCP - General Family Medicine 06/26/18 documented as of this encounter
--- OUTSIDE RECORDS SUMMARY | 2025-03-23 13:56 | XMS_ITS | Encounter Summary ---
Author Organization [employer] Address [address] [facility] 7t [place] [address] Care Team Providers Care Workforce Advisor Name Role Phone Name, Jeremiah GARCIA Primary Care Provider Reason for Visit * Reason Onset Date Comments Appointment Request 08/16/2024 Encounter Details Date Type Department Care Team ([facility] st Contact Info) Description 08/16/[address] [facility] MEDICINE [address] [place] [address] Name, MD Jeremiah [address] [place] [address] Appointment Request Social History Tobacco Use Types [...] encounter Miscellaneous Notes * Telephone Encounter - Price Devine - 08/16/2024 9:24 AM EDT Tc from patients spouse calling to reschedule appt from 08/13 however there is no availability documented in this encounter Plan of Treatment Upcoming Encounters Date Type Department Care Team (Late st Contact Info) Description 04/08/2025 1:45 PM EDT Office Visit [facility] MEDICINE [address] [place] [phone] Name, MD Jeremiah [address] [place] [address] documented as of this encounter Goals Goal [...] documented as of this encounter Care Teams Workforce Advisor Relationship Specialty Start Date End Date NameJeremiah MD [address] [place] [address] PCP - General Family Medicine 06/26/18 documented as of this encounter
--- OUTSIDE RECORDS SUMMARY | 2025-03-23 13:56 | XMS_ITS | Encounter Summary ---
Author Organization [employer] Address [address] [facility] 7t [place] [address] Care Team Providers Care Chief Maintenance Supervisor Name Role Phone Name, Jeremiah GARCIA Primary Care Provider [phone] Reason for Referral * Consultation (Routine) - Authorized Specialty Diagnoses / Procedures Referred By Zhang day Referred To Contact Behavioral Health Diagnoses Moderate major depression, single episode (CMS/HCC) Myrna Rodriguez MD [address] [place] [address] Phone: tel: fax: Referral ID Status Reason Start Date Expiration Date Visits Requested Visits Authorized [id number] Authorized Specialty Services Required 03/22/2025 03/22/2026 1 1 * Consultation (Routine) - Pending Review Specialty Diagnoses / Procedures Referred By Zhang day Referred To Contact Cardiology Diagnoses Left bundle branch block Essential hypertension Myrna Rodriguez MD [address] [place] [address] Phone: tel: fax: Referral ID Status Reason Start Date Expiration Date Visits Requested Visits Authorized [id number] Pending Review Specialty Services Required 03/22/2025 03/22/2026 1 1 Encounter Details Date Type Department Care Team (Late st Contact Info) Description 03/22/2025 5:40 PM EDT Office Visit [facility] [address] [place], [place] [phone] Mynra Rodriguez MD [address] [place] [address] Essential hypertension (Primary Dx); Left bundle branch block; Moderate major depression, single episode (CMS/HCC) Social History Tobacco Use Types Packs/Day Years [...] AM EDT documented as of this encounter Last Filed Vital Signs Vital Sign Reading Time Taken Comments Blood Pressure 165/101 03/22/2025 5:06 PM EDT Pulse 54 03/22/2025 5:06 PM EDT Temperature 36.3 ??C (97.4 ??F) 03/22/2025 5:06 PM ED T Respiratory Rate 22 03/22/2025 5:06 PM EDT Oxygen Saturation 97% 03/22/2025 5:06 PM EDT Inhaled Oxygen Concentration - - Weight 73.9 kg (163 lb) 03/22/2025 5:06 PM EDT Height 167.6 cm (5' 6 ) 03/22/2025 5:06 PM EDT Body Mass Index 26.31 03/22/2025 5:06 PM EDT documented in this encounter Progress Notes * Myrna Rodriguez MD - 03/22/2025 5:40 PM EDT SUBJECTIVE: James Almonte is a 54 y.o. year old male who presents for [facility]/HTN . Denies recent illness, injury, or hospitalization. Patient is here with his sister Lizet whom he is living with at this time. Acute Concerns: He is here because he is out of BP meds. He has noticed increased BP on and off to 160/110 for the past 2 months since ran out of medications. He complains of recurrent episodes of headache almost chris daily basis for the past 2 or 3 weeks, no dizziness, blurred vision, nausea or vomiting. Headacheis usually improved with Tylenol which she is taking daily. He also reports episodes of chest pain, not always related to exertion, last episode was this morning, was at rest and apparently was related to patient's increased anxiety, he tried to do some relaxing exercises and chest pain resolved after approximately 1 hour. He has noticed progressive DAVIDSON x 4 months, ET = 2 blocks, he also have 2 pillows orthopnea, no leg edema or PND. Patient is also been out of the patient medications, he was previously seen by psychiatry until August last year but according to him they have not scheduled follow-up appointments that he is out ofmedication for more than 3 months now. Has increased anxiety and problems sleeping. He denies SI/HIand he feels safe at home now with his sister. He denies using any recreational substances or alcoho l. Social History Social History Narrative Not on file Patient Active Problem List Diagnosis Chronic low back pain Essential hypertension Anxiety Hypospadias Knee pain Moderate major depression, single episode (CMS/HCC) Male infertility Post-traumatic osteoarthritis of left knee Illiteracy Left bundle branch block No family history on file. Review of Systems Constitutional: Negative for fever. HENT: Negative for congestion, ear pain, rhinorrhea and sore throat. Eyes: Negative for pain and discharge. Respiratory: Positive for shortness of breath. Negative for cough. Cardiovascular: Positive for chest pain and palpitations. Gastrointestinal: Negative for abdominal pain, constipation, diarrhea and nausea. Endocrine: Negative for polydipsia. Genitourinary: Negative for dysuria and frequency. Musculoskeletal: Negative for arthralgias, back pain and neck pain. Neurological: Positive for headaches. Negative for dizziness and numbness. Psychiatric/Behavioral: Negative for agitation. OBJECTIVE: Vitals: 03/22/25 1706 BP: (!) 165/101 Pulse: 54 Resp: 22 Temp: 97.4 ??F (36.3 ??C) SpO2: 97% Physical Exam Constitutional: Appearance: Normal appearance. HENT: Right Ear: Tympanic membrane and ear canal normal. Left Ear: Tympanic membrane and ear canal normal. Mouth/Throat: Mouth: Mucous membranes are moist. Pharynx: No oropharyngeal exudate or posterior oropharyngeal erythema. Eyes: Pupils: Pupils are equal, round, and reactive to light. Cardiovascular: Rate and Rhythm: Normal rate and regular rhythm. Heart sounds: No murmur heard. Pulmonary: Breath sounds: Normal breath sounds. No wheezing. Abdominal: General: Bowel sounds are normal. Palpations: Abdomen is soft. Tenderness: There is no abdominal tenderness. Musculoskeletal: General: No tenderness. Normal range of motion. Cervical back: Normal range of motion. No tenderness. Skin: General: Skin is warm. Neurological: General: No focal deficit present. Mental Status: He is alert and oriented to person, place, and time. Psychiatric: Mood and Affect: Mood normal. Encounter Date: 03/22/25 ECG 12 lead Narrative NSR at 54 bpm, left axis, LBBB (unchanged since 11/15/2022 EKG). Nonspecific lateral leads repolarization abnormalities Problem List Items Addressed This Visit Essential hypertension - Primary Uncontrolled likely related to being out of medications. Restart lisinopril 10 mg sent by PCP this afternoon, and check BMP/BNP tomorrow Follow-up with PCP on 04/08/2025, information for appointment given to patient. Will refer to cardiology due to S/S CHF and LBBB, I will order BNP. Counseled re low salt diet/increase moderate physical activity. Check home BP BIW and prn CP/BLANC/DAVIDSON Non smoking patient. Relevant Orders Basic Metabolic Panel Referral to Cardiology ECG 12 lead (Completed) B Type Natriuretic Peptide (BNP) Left bundle branch block [place]changed [place] [facility] [place] Will refer to cardiology for further evaluation Discussed with patient and sister regarding importance of tight control of hypertension Advised to go to ED if she develops exertional chest pain or worsening DAVIDSON Relevant Orders Referral to Cardiology ECG 12 lead (Completed) Moderate major depression, single episode (CMS/HCC) I discussed with her the importance of close follow-up by psychiatry, we discussed about reaching out for safety and crisis number, they have that information. I will refer to to recommend further psychiatry Restart sertraline and Seroquel nightly Patient feels safe at home and is able to reach out for safety Relevant Orders Referral to Behavioral Health Follow Up: Current Outpatient Medications on File Prior to Visit Medication Sig Dispense Refill [DISCONTINUED] QUEtiapine (SEROquel) 50 MG tablet Take 50 mg by mouth at bedtime. [DISCONTINUED] sertraline (Zoloft) 50 MG tablet Take 50 mg by mouth in the morning. Blood Pressure Monitor kit Use twice a day 1 kit 0 Diclofenac Sodium 1 % gel APPLY 2 GRAMS TO AFFECTED AREA(S) TWICE DAILY 100 g 2 lisinopril 10 MG tablet Take 1 tablet (10 mg) by mouth in the morning. 90 tablet 2 [DISCONTINUED] lisinopril 10 MG tablet Take 1 tablet (10 mg) by mouth in the morning. 90 tablet 2 No current facility-administered medications on file prior to visit. documented in this encounter Miscellaneous Notes * Assessment & Plan Note - Myrna Rodriguez MD - 03/22/2025 6:01 PM EDT Associated Problem(s): Moderate major depression, single episode (CMS/HCC) I discussed with her the importance of close follow-up by psychiatry, we discussed about reaching out for safety and crisis number, they have that information. I will refer to to recommend further psychiatry Restart sertraline and Seroquel nightly Patient feels safe at home and is able to reach out for safety * Assessment & Plan Note - Myrna Rodriguez MD - 03/22/2025 6:00 PM EDT Associated Problem(s): Essential hypertension Uncontrolled likely related to being out of medications. Restart lisinopril 10 mg sent by PCP this afternoon, and check BMP/BNP tomorrow Follow-up with PCP on 04/08/2025, information for appointment given to patient. Will refer to cardiology due to S/S CHF and LBBB, I will order BNP. Counseled re low salt diet/increase moderate physical activity. Check home BP BIW and prn CP/BLANC/DAVIDSON Non smoking patient. * Assessment & Plan Note - Myrna Rodriguez MD - 03/22/2025 5:57 PM EDT Associated Problem(s): Left bundle branch block [place]changed [place]15[place]20[place] [facility] [place] Will refer to cardiology for further evaluation Discussed with patient and sister regarding importance of tight control of hypertension Advised to go to ED if she develops exertional chest pain or worsening DAVIDSON documented in this encounter Plan of Treatment Upcoming Encounters Date Type Department Care Team (Late st Contact Info) Description 04/08/2025 1:45 PM EDT Office Visit [facility] MED[facility] [address] [place] [address] Name, MD Jeremiah [address] [place] [address] Scheduled Orders Name Type Priority Associated Diagnoses Orde r Schedule Basic Metabolic Panel Lab Routine Essential hypertension Expected: 03/22/2025 (Approximate), Expires: 03/22/2026 B Type Natriuretic Peptide (BNP) Lab Routine Essential hypertension Expected: 03/22/2025, Expires: 03/22/2026 Scheduled Referrals Name Type Priority Associated Diagnoses Orde r Schedule Referral to Cardiology Outpatient Referral Routine Left bundle branch block Essential hypertension Expected: 03/22/2025 (Approximate), Expires: 03/22/2026 Referral to Behavioral Health Outpatient Referral Routine Moderate major depression, single episode (CMS/HCC) Expected: 03/22/2025 (Approximate), Expires: 03/22/2026 documented as of this encounter Goals Goal Patient Goal Type Associated Problems Recent Progress Patient-Stated? Author Record your blood pressure periodically (2-3x per week) Blood Pressure No Puia, Fatimah, PharmD Blood Pressure < 140/90 Blood Pressure 165/101(03/22 5:06 PM EDT) No Puia, Fatimah, PharmD documented as of this encounter Procedures Procedure Name Priority Date/Time Associated Diagnosis Comments ECG 12-LEAD Routine 03/22/2025 5:56 PM EDT Left bundle branch block Essential hypertension documented in this encounter Results * ECG 12 lead (03/22/2025 5:56 PM EDT) Myrna Suggs MD - 03/22/2025 5:56 PM EDT NSR at 54 bpm, left axis, LBBB (unchanged since 11/15/2022 EKG). ?? Nonspecific lateral leads repolarization abnormalities us Myrna Rodriguez MD ECG ORDERABLES Final Re sult documented in this encounter Visit Diagnoses Diagnosis Essential hypertension- Primary Unspecified essential hypertension Left bundle branch block Other left bundle branch block Moderate major depression, single episode (CMS/HCC) Major depressive disorder, single episode, moderate documented in this encounter Additional Health Concerns Assessment Noted Time PHQ-9 Depression Total Score: 9 06/13/20 23 11:19 AM EDT documented as of this encounter Care Teams Chief Maintenance Supervisor Relationship Specialty Start Date End Date Name, MD Jeremiah [address] [place] [address] PCP - General Family Medicine 06/26/18 documented as of this encounter
--- OUTSIDE RECORDS SUMMARY | 2025-03-23 13:56 | XMS_ITS | Encounter Summary ---
Author Organization [employer] Address [address] [facility] 7t [place] [address] Care Team Providers Care School Administrator Name Role Phone Name, Jeremiah GARCIA Primary Care Provider [phone] Reason for Visit * Reason Onset Date Comments Nurse Triage 03/22/2025 Encounter Details Date Type Department Care Team ([facility] st Contact Info) Description 03/22/2025 Telephone [facility] [address] [place] [address] Name, MD Jeremiah [address] [place] [address] Nurse Triage Social History Tobacco Use Types Packs/Day Years [...] encounter Miscellaneous Notes * Telephone Encounter - Ghada Bell RN - 03/22/2025 2:19 PM EDT No cover maker needed as this specification writer speaks Kiswahili. Call returned to James Almonte to triage below.Reports having 2-3 days of elevated BP readings. Pt placed sister Mehnaz on 156/107 HR 60. Per sisterpatient is without BP medications over 1 month. No ssx of CP, BLANC, SOB or dizziness today. Pt geovany was in [place] and returned yesterday. Pt informed having 1 episode of CP last week that resolved with taking advil. Last rx for lisinopril was in August 2024 with 90 day supply. Pt should have needed a refill since November. Pt and sister advised of disposition, agrees to seek [facility] for exam as nosick on site availability on teams at time of call. Reviewed [facility] operating hours and that wait times vary. Reviewed home care advise, ER precautions and reasons to call back. Protocol Used: Blood Pressure - High (Adult) Protocol-Based Disposition: Discuss with PCP and Callback by Nurse Today Will send to PCP and team to update and follow up with plan of care as needed. Video visit offer not recorded Positive Triage Question: * Ran out of BP medications * All higher-acuity triage questions were negative Care Advice Discussed: * High Blood Pressure * Reasons To Call Back - Headache, blurred vision, difficulty talking, or difficulty walking occurs - Chest pain or difficulty breathing occurs - You become worse * Telephone Encounter - Lucero Avila - 03/22/2025 2:15 PM EDT Symptom: High Blood Pressure - Caller Reports Outcome: Schedule a same-day appointment or talk to a nurse or provider today Reason: Caller denied all higher acuity questions The caller accepted this outcome. documented in this encounter Plan of Treatment Upcoming Encounters Date Type Department Care Team (Late st Contact Info) Description 04/08/2025 1:45 PM EDT Office Visit [facility] [address] [place] [address] Name, MD Jeremiah [address] [place] [address] documented as of this encounter Goals Goal [...] documented as of this encounter Care Teams School Administrator Relationship Specialty Start Date End Date Jeremiah Morales MD [address] [place] [address] PCP - General Family Medicine 06/26/18 documented as of this encounter
--- OUTSIDE RECORDS SUMMARY | 2025-03-23 13:56 | XMS_ITS | Clinical Summary ---
Author Organization [employer] Address [address] [facility] 7t [place] [address] Care Team Providers Care Bulb Sorter Name Role Phone Name, Jeremiah GARCIA Primary Care Provider [phone] Allergies No known active allergies Medications Blood Pressure Monitor kit Use twice a day 1 kit 02/17/20 24 Active Diclofenac Sodium 1 % gel APPLY 2 GRAMS TO AFFECTED AREA(S) TWICE DAILY 100 g 2 02/17/20 24 Active lisinopril 10 MG tabletIndication s:Essential hypertension Take 1 tablet (10 mg) by mouth in the morning. 90 tablet 2 03/22/20 25 Active QUEtiapine (SEROquel) 50 MG tablet Take 1 tablet (50 mg) by mouth at bedtime. 30 tablet 03/22/20 25 Active sertraline (Zoloft) 50 MG tablet Take 1 tablet (50 mg) by mouth in the morning. 30 tablet 03/22/20 25 Active lisinopril 10 MG tabletIndication s:Essential hypertension Take 1 tablet (10 mg) by mouth in the morning. 90 tablet 2 09/03/20 24 025 Discontinued(Re order (will not trigger notification to Pharmacy)) sertraline (Zoloft) 50 MG tablet Take 50 mg by mouth in the morning. 10/04/20 24 025 Discontinued(Re order (will not trigger notification to Pharmacy)) QUEtiapine (SEROquel) 50 MG tablet Take 50 mg by mouth at bedtime. 09/17/20 24 025 Discontinued(Re order (will not trigger notification to Pharmacy)) Active Problems Problem Noted Date Diagnosed Date Left bundle branch block 03/22/2025 Assessment & Plan (03/22/2025 5:57 PM EDT): Unchanged since 11/15/2022 (EKG at [facility] Will refer to cardiology for further evaluation Discussed with patient and sister regarding importance of tight control of hypertension Advised to go to ED if she develops exertional chest pain or worsening DAVIDSON Illiteracy 02/17/2024 Male infertility 06/13/2023 Post-traumatic osteoarthritis of left knee 06/13 Hypospadias 11/29/2022 Anxiety 08/04/2018 Chronic low back pain 06/26/2018 Essential hypertension 06/26/2018 Assessment & Plan (03/22/2025 6:00 PM EDT): Uncontrolled likely related to being out of medications. Restart lisinopril 10 mg sent by PCP this afternoon, and check BMP/BNP tomorrow Follow-up with PCP on 04/08/2025, information for appointment given to patient. Will refer to cardiology due to S/S CHF and LBBB, I will order BNP. Counseled re low salt diet/increase moderate physical activity. Check home BP BIW and prn CP/BLNAC/DAVIDSON Non smoking patient. Assessment & Plan (01/01/2024 6:52 AM EST): Elevated BP today Not took BP med today -advised pt to be complaint w medications -to f w PCP in 4 weeks and to bring home BP readings then to eval if need to adjust BP meds Knee pain 06/26/2018 Moderate major depression, single episode 2017 Assessment & Plan (03/22/2025 6:01 PM EDT): I discussed with her the importance of close follow-up by psychiatry, we discussed about reaching out for safety and crisis number, they have that information. I will refer to to recommend further psychiatry Restart sertraline and Seroquel nightly Patient feels safe at home and is able to reach out for safety Resolved Problems Problem Noted Date Diagnosed Date Resolved Date Pain of finger of left hand 01/01/2024 02/17/2024 Assessment & Plan (01/01/2024 6:53 AM EST): Pt was evaluated by PCP for this in the past but pt never had workup done From exam and description of symptoms most likely OA not concerning at this time for arthritis -printted today bl hand XR order by PCP back in 05/2023 -Continue diclofenac prn -tylenol prn and px today meloximda prn -pt to f w PCP to monitor Laceration 06/13/2023 02/17/2024 Headache 12/25/2018 02/17/2024 Snoring 12/25/2018 02/17/2024 Tired 12/25/2018 02/17/2024 Rib pain 06/26/2018 02/17/2024 Encounters Date Type Department Care Team Description 03/22/2025 5:40 PM EDT Office Visit [facility] [address] [place] [address] Myrna Rodriguez MD Essential hypertension (Primary Dx); Left bundle branch block; Moderate major depression, single episode (CMS/HCC) 03/22/2025 Travel 03/22/2025 Telephone [facility] [address] [place] [address] Sherley Stallings [place] Appointment Request 03/22/[address] [address] Jeremiah Morales MD Nurse Triage 03/22/2025 Refill [facility] [address] [place] [id number] Jeremiah Morales MD Essential hypertension 03/22/[address] [address] Jeremiah Morales MD Appointment Request 01/28/2025 Population Health Risk Score [facility] Department [address] [id number] Provider, Population Health Generic from Last 3 Months Immunizations Name Administration Dates Next Due Influenza injectable quadriv alent IIV4 with preservative 08/26/2019,08/04/2018 Influenza injectable quadrivalent preservative f ree 08/20/2021 Tdap 03/31/2023,07/10/2018 Zoster, Recombinant 08/06/2022,05/07/2022 Social History Tobacco Use Types Packs/Day Years Used Date Smoking Tobacco: Never Passive Smoke Exposure: Never Smokeless Tobacco: Never Tobacco Cessation:Counseling Given: Not Answered Alcohol Use Standard Drinks/Week Comments Never 0 [...] Orientation Straight 09/16/2022 10 :34 AM EDT Last Filed Vital Signs Vital Sign Reading [...] Mass Index 26.31 03/22/2025 5:06 PM EDT Plan of Treatment Upcoming Encounters Date Type Department Care Team (Late st Contact Info) Description 04/08/2025 1:45 PM EDT Office Visit [facility] [address] [place] [address] Name, MD Jeremiah [address] [place] [address] Health Maintenance Due Date Last Done Comments CT Colonography 1968 Colonoscopy 1968 Colorectal Cancer Screening 1968 FIT DNA/Cologuard 1968 FIT 1968 FOBT 1968 Sigmoidoscopy 1968 Alcohol/Substance Use Screening 1980 Hepatitis B Vaccines (1 of 3 - 19+ 3-dose series) 1987 Pneumococcal Vaccine: 50+ Years (1 of 1 - PCV) 2018 Depression Screening 06/13/2024 06/13/2023, 06/13/2023 SDOH Screening 06/13/2024 06/13/2023 COVID-19 Vaccine (4 - 2023-2 5 season) 2024 12/17/2021, 05/01/2021, 04/03/2021 Influenza Vaccine (#1) 2024 , 08/26/2019, 08/04/2018 Tobacco Screening 09/06/2025 09/06/2024 Lipid Panel 09/13/2029 09/13/2024, 06/05/2022 DTaP/Tdap/Td Vaccines (3 - T d or Tdap) 03/31/2033 03/31/2023, 07/10/2018 RSV Patients and Patients Aged 60 years or older (1 - 1-dose 75+ series) 2043 HIV Screening Completed 02/08/2020 Hepatitis C Screening Completed 02/08/2020 Zoster Vaccines Completed 08/06/2022, 05/07/2022 HIB Vaccines Aged Out No longer eligi ble based on patient's age to complete this topic HPV Vaccines Aged Out No longer eligi ble based on patient's age to complete this topic Hepatitis A Vaccines Aged Out No long er eligible based on patient's age to complete this topic IPV Vaccines Aged Out No longer eligi ble based on patient's age to complete this topic Meningococcal Vaccine Aged Out No aurelia ruth eligible based on patient's age to complete this topic RSV under 20 months Aged Out No longe r eligible based on patient's age to complete this topic Rotavirus Vaccines Aged Out No longer eligible based on patient's age to complete this topic Goals Goal Patient Goal Type Associated Problems Recent Progress Patient-Stated? Author Record your blood pressure periodically (2-3x per week) Blood Pressure No Fatimah Ragland PharmD Blood Pressure < 140/90 Blood Pressure 165/101(03/22 5:06 PM EDT) No Fatimah Ragland PharmD Procedures Procedure Name Priority Date/Time Associated Diagnosis Comments ECG 12-LEAD Routine 03/22/2025 5:56 PM EDT Left bundle branch block Essential hypertension LIPID PANEL, STANDARD Routine 09/13/2024 9:19 AM EDT Essential hypertension Depression with anxiety ZZZ HISTORICAL HEPATITIS C ANTIBODY Routine 02/08/2020 1:57 PM EDT ZZZ HISTORICAL HIV AB/AG Routine 02/08/2020 1:57 PM EDT from Last 3 Months or Most Recently Relevant to Health Maintenance Results * ECG 12 lead (03/22/2025 5:56 PM EDT) Narrative Myrna Rodriguez MD - 03/22/2025 5:56 PM EDT NSR at 54 bpm, left axis, LBBB (unchanged since 11/15/2022 EKG). ?? Nonspecific lateral leads repolarization abnormalities us Myrna Rodriguez MD ECG ORDERABLES Final Re sult * (ABNORMAL) Lipid Panel, Standard (09/13/2024 9:19 AM EDT) Triglycerides 122 <150 mg/dL [facility] Comment:Desirable Triglyceri de: less than 150 mg/dLBorderline High Triglyceride 150-199 mg/dLHigh Triglyceride: 200-499 mg/dLVery High Triglyceride: greater than or equal to 5OO mg/dL Cholesterol 149 <200 mg/dL [facility] Comment:Desirable Cholestero l: less than 200 mg/dLBorderline High Cholesterol: 200-239 mg/dLHigh Cholesterol: greater than 239 mg/dL LDL Cholesterol Calculated 89 <100 mg/dL [facility] Comment:Desirable LDL: less than 100 mg/dLNear Optimal/Above Optimal LDL: 110- 129 mg/dLBorderline High LDL: 130-159 mg/dLHigh LDL: 160-189 mg/dLVery High LDL: greater than or equal to 190 mg/dL HDL Cholesterol 36(L) >40 mg/dL [facility] Comment:Desirable HDL: great er than 40 mg/dL Note: This HDL assay may give artificially low results in patients with liver disease. Blood Venous blood specimen / Unknown 09/13/2024 9:19 AM EDT 09/13/2024 11:05 AM EDT Jeremiah Morales MD LAB BLOOD ORDERABLES Final Resul t [facility] [address] [place] [address] [phone] * HEPATITIS C ANTIBODY (02/08/2020 1:57 PM EDT) Pathologist [facility] HEPATITIS C ANTIBODY [facility]ACTIVE [facility] Comment: Antibodies to HCV not detected; does not exclude early acute HCV infection. 02/08/2020 1:57 PM EDT Historical Provider HISTORICAL/NON ORDERABLE LABS Final Result Performing Organization Address City/Va Hospital/ZIP Co de Phone Number [facility] [address] * HIV AB/AG (02/08/2020 1:57 PM EDT) Pathologist [facility] HIV AG/AB [facility]ACTIVE [facility] Comment: HIV-1 p24 Ag and/or HIV-1/HIV-2 Ab not detected. ?? A test result that is nonreactive does not exclude the possibility of exposure to or infection with HIV-1 and/or HIV-2. Nonreactive results in this assay for individuals with prior exposure to HIV-1 and/or HIV-2 may be due to antigen and antibody levels that are below the limit of detection of this assay. ?? The [employer] Anesthetist HIV Ag/Ab Combo assay result and supplemental assay results should be interpreted in conjunction with the patient's clinical presentation, history and other laboratory results. ??If the results are inconsistent with clinical evidence, additional testing is suggested to confirm the result. 02/08/2020 1:57 PM EDT us Historical Provider HISTORICAL/NON ORDERABLE LABS Final Result Performing Organization Address City/State/[facility] Co ok Phone Number [facility] [facility] [address] from Last 3 Months or Most Recently Relevant to Health Maintenance Insurance [employer] Care Teams Bulb Sorter Relationship Specialty Start Date End Date Name, MD Jeremiah [address] [place] [address] PCP - General Family Medicine 06/26/18
[2025-03-23 16:33] LABS: B Type Natriuretic Peptide 27 pg/mL (<100)
[2025-03-23 16:43] LABS: Anion Gap 10 (12-20); Blood Urea Nitrogen 16 mg/dL (9-16); Calcium 9.2 mg/dL (8.4-10.2); Carbon Dioxide 26 mmol/L (22-29); Chloride 109 mmol/L (96-108); Estimated Glomerular Filt Rate > 60; Glucose Random 94 mg/dL (60-115); Potassium 3.6 mmol/L (3.3-5.1); Sodium 141 mmol/L (135-145)
== END 2025-03-23 12:52 | disposition home or self-care (01) ==
LOC: HO.HHCL 12:51
PROVIDERS: Visit Provider Internal Medicine
DX: I10 Essential (primary) hypertension (principal)
CPT/HCPCS: 36415; 80048; 83880

== ENCOUNTER 2025-04-08 14:37 | Outpatient (REF) | payer MEDICAID, SELFPAY ==
--- OUTSIDE RECORDS SUMMARY | 2025-04-08 14:39 | XMS_ITS | Encounter Summary ---
Author Organization [employer] Address [address] [facility] 7t [place] [address] Care Team Providers Care Branner Machine Tender Name Role Phone Name, Jeremiah GARCIA Primary Care Provider [phone] Reason for Visit * Reason Onset Date Comments Appointment Request 03/22/2025 Encounter Details Date Type Department Care Team ([facility] Contact Info) Description 03/22/2025 Telephone [facility] [address] [place] [address] Name, MD Jeremiah [address] [place] [address] Appointment Request Social History Tobacco Use Types Packs/Day Years Used Date Smoking Tobacco: Never Passive Smoke Exposure: Never Smokeless Tobacco: Never Alcohol Use Standard Drinks/Week Comments Never 0 (1 standard drink = 0.6 oz pur e alcohol) Depression Answer Date Recorded Patient Health Questionnaire-9 Score 12 03/24/2025 Patient Health Questionnaire-9 Score 12 03/24/2025 Last PHQ-9: Questionnaire Data Not on file 0 03/24/2025 Housing Stability Answer Date Recorded What is [...] Answer Date Recorded Patient Health Questionnaire-2 Score 4 03/24/2025 Sex and Gender Information Value Date Recorded Sex Assigned at Male 09/16/2022 10:34 AM EDT Legal Sex Male 10:34 AM EDT Gender Identity Male 09/16/2022 10:34 AM EDT Sexual Orientation Straight 09/16/2022 10 :34 AM EDT documented as of this encounter Functional Status * Over the past 2 weeks, how often have you been bothered by any of the following problems? Question Answer Date of Assessment Author Patient Health Questionnaire-2 Score 4 03/24/2025 9:18 AM EDT Urban Haynes * Little interest or pleasure in doing things Answer Date of Assessment Author More than half the days 03/24/2025 9:18 AM EDT Urban Valdovinos * Feeling down, depressed, or hopeless Answer Date of Assessment Author More than half the days 03/24/2025 9:18 AM EDT Urban Valdovinos * Trouble falling or staying asleep, or sleeping too much Answer Date of Assessment Author More than half the days 03/24/2025 9:18 AM EDT Urban Valdovinos * Feeling tired or having little energy Answer Date of Assessment Author More than half the days 03/24/2025 9:18 AM EDT Urban Valdovinos * Poor appetite or overeating Answer Date of Assessment Author Several days 03/24/2025 9:18 AM EDT Urban Dupree * Feeling bad about yourself - or that you are a failure or have let yourself or your family down Answer Date of Assessment Author Several days 03/24/2025 9:18 AM EDT Urban Dupree * Trouble concentrating on things, such as reading the newspaper or watching television Answer Date of Assessment Author Several days 03/24/2025 9:18 AM EDT Urban Dupree * Moving or speaking so slowly that other people could have noticed? Or the opposite - being so fidgety or restless that you have been moving around a lot more than usual. Answer Date of Assessment Author Several days 03/24/2025 9:18 AM EDT Urban Dupree * Thoughts that you would be better off or hurting yourself in some way Answer Date of Assessment Author Not at all 03/24/2025 9:18 AM EDT Urban Dupree * Patient Health Questionnaire-9 Score Answer Date of Assessment Author 12 03/24/2025 9:18 AM EDT Urabn Dupree * How difficult have these problems made it for you to do your work, take care of things at home, or get along with other people? Answer Date of Assessment Author Somewhat difficult 03/24/2025 9:18 AM EDT Urban Seymour * Over the last 2 weeks, how often have you been bothered by any of the following problems? Question Answer Date of Assessment Author Feeling nervous, anxious, or on edge 0 03/24/2025 9:31 AM EDT Urban Pierre Not being able to stop or control worrying 0 03/24/2025 9:31 AM EDT Urban Pierre Worrying too much about different things 1 03/24/2025 9:31 AM EDT Urban Pierre Trouble relaxing 1 03/24/2025 9:31 AM EDT Urban Valdovinos Being so restless that it is hard to sit still 0 03/24/2025 9:31 AM Urban Chi Becoming easily annoyed or irritable 0 03/24/2025 9:31 AM EDT Urban Pierre Feeling afraid as if something awful might happen 0 03/24/2025 9:31 AM Urban Nye ANU-7 Total Score 2 03/24/2025 9:31 AM LOUIET Urban Pierre documented as of this encounter Miscellaneous Notes * Telephone Encounter - Lucero Avila - 03/22/2025 2:09 PM EDT Tc from pt requesting schedule follow up appointment. Recall: November documented in this encounter Plan of Treatment Upcoming Encounters Date Type Department Care Team (Late st Contact Info) Description 04/22/2025 11:30 AM EDT Telemedicine [facility] [address] [place] [address] documented as of this encounter Goals Goal Patient Goal Type Associated Problems Recent Progress Patient-Stated? Author Record your blood pressure periodically (2-3x per week) Blood Pressure No Puia, Fatimah, PharmD Blood Pressure < 140/90 Blood Pressure 145/89(2024 1:51 PM EDT) No Puia, Fatimah, PharmD documented as of this encounter Visit Diagnoses Not on filedocumented in this encounter Additional Health Concerns Assessment Noted Time PHQ-9 Depression Total Score: 9 06/13/20 23 11:19 AM EDT documented as of this encounter Care Teams Branner Machine Tender Relationship Specialty Start Date End Date Name, MD Jeremiah [address] [place] [id number] PCP - General Family Medicine 06/26/18 documented as of this encounter
[2025-04-08 16:57] LABS: Anion Gap 13 (12-20); Blood Urea Nitrogen 15 mg/dL (9-16); Calcium 9.4 mg/dL (8.4-10.2); Carbon Dioxide 27 mmol/L (22-29); Chloride 107 mmol/L (96-108); Estimated Glomerular Filt Rate > 60; Glucose Random 85 mg/dL (60-115); Potassium 3.9 mmol/L (3.3-5.1); Sodium 143 mmol/L (135-145)
== END 2025-04-08 14:38 | disposition home or self-care (01) ==
LOC: HO.HHCL 14:37
PROVIDERS: Visit Provider Internal Medicine Geriatric Medicine
DX: I10 Essential (primary) hypertension (principal)
CPT/HCPCS: 36415; 80048